=== PATIENT | male | born 1945 | race Caucasian/White ===

== ENCOUNTER 2024-06-27 16:00 | Inpatient (IN) | payer OTHER ==
[~2024-06-27] VITALS: Ht 177.8 cm; Wt 92.2 kg
[~2024-06-27 16:00] MED LIST: AMLO1TAB22 PO; ATOR-507 PO; FINA5TAB4 PO; HYDR50TA47 PO; LOSA-533 PO; METO-289 PO; TAMS0.4C39 PO
--- NOTE | 2024-06-27 16:54 | DVH ---
EXAM: XR Chest, 1 View CLINICAL INDICATION: pre op TECHNIQUE: Frontal view of the chest. COMPARISON: None FINDINGS: LUNGS AND PLEURAL SPACES: Unremarkable. No consolidation. No pneumothorax. HEART: Unremarkable. No cardiomegaly. MEDIASTINUM: Unremarkable. Normal mediastinal contour. BONES/JOINTS: Unremarkable. No acute fracture. IMPRESSION: No acute cardiopulmonary process.
[2024-06-27 17:27] LABS: Basophils # (auto) 0.1 10 ^3/uL (0-0.2); Basophils % (auto) 0.8 % (0.0-2.0); Eosinophils # (auto) 0.2 10 ^3/uL (0-0.8); Eosinophils % (auto) 2.4 % (0.0-7.0); Hematocrit 38.8 % (41.0-53.0); Hemoglobin 13.6 g/dL (13.5-17.5); Lymphocytes # (auto) 1.2 10 ^3/uL (0.4-5.4); Lymphocytes % (auto) 14.8 % (10.0-50.0); Mean Corpuscular Hemoglobin 29.5 pg (28.0-32.0); Mean Corpuscular Hgb Conc. 35.1 g/dL (32.0-36.0); Mean Corpuscular Volume 84.1 fL (80.0-100.0); Monocytes # (auto) 0.4 10 ^3/uL (0-1.3); Monocytes % (auto) 5.4 % (0.0-12.0); Neutrophils # (auto) 6.3 10 ^3/uL (1.6-8.6); Neutrophils % (auto) 76.6 % (37.0-80.0); Nucleated Red Blood Cells % 0.1 %; Platelet Count (auto) 145 10^3/uL (140-450); Red Blood Cells 4.61 10^6/uL (4.5-5.90); Red Cell Distribution Width 14.2 % (11.8-14.3); White Blood Cell 8.2 10^3/uL (4.4-10.8)
[2024-06-27 17:58] LABS: Alanine Aminotransferase 25 U/L (7-40); Albumin 4.4 g/dL (3.2-4.8); Alkaline Phosphatase 100 U/L (46-116); Anion Gap 7 (5-15); Aspartate Aminotransferase 20 U/L (13-40); BUN/Creatinine Ratio 12.5 (10.0-20.0); Bilirubin, Total 0.5 mg/dL (0.2-1.0); Blood Urea Nitrogen 23 mg/dL (9-23); Calcium 9.8 mg/dL (8.7-10.4); Carbon Dioxide 24 mmol/L (20-31); Chloride 109 mmol/L (98-107); Glucose 172 mg/dL (74-106); Sodium 140 mmol/L (136-145)
[2024-06-27 18:21] LABS: COVID19 ANTIGEN SOFIA FIA NEGATIVE (NEGATIVE)
--- NOTE | 2024-06-27 18:51 | ED.PDOC ---
General HPI Comments Patient here for admission for urinary procedure tomorrow. Patient was seen in by Dr. Valadez. Patient is scheduled to have TURP procedure done tomorrow. States he has been having blood in his urine over the last two weeks and getting worse over the last two days. He was seen by Dr. Neal today advised to come into the emergency department. Patient states he has been urinating fine without any obstruction. Patient states he was explained that he has a lesion in his bladder and and needs to be removed. Chief Complaint: Urinary Time Seen by MD: 16:12 Primary Care Provider: RENE Reviewed notes: Nurses Notes Allergies: Coded Allergies: NO KNOWN ALLERGIES (Unverified , 06/27/24) Information Source: Patient Mode of Arrival: Ambulatory Past Medical History Past Medical History (Other): Prostate cancer, BPH, Constitutional: denies: chills, diaphoresis, fatigue, fever, malaise, sweats, weakness, others EENTM: denies: blurred vision, double vision, ear bleeding, ear discharge, ear drainage, ear pain, ear ringing, eye pain, eye redness, hearing loss, mouth pain, mouth swelling, nasal discharge, nose bleeding, nose congestion, nose pain, photophobia, tearing, throat pain, throat swelling, voice changes, others Respiratory: denies: cough, hemoptysis, orthopnea, SOB at rest, shortness of breath, SOB with excertion, stridor, wheezing, others Cardiovascular: denies: chest pain, dizzy spells, diaphoresis, Dyspnea on exertion, edema, irregular heart beat, left arm pain, lightheadedness, palpitations, PND, syncope, others Gastrointestinal: denies: abdomen distended, abdominal pain, blood streaked bowels, constipated, diarrhea, dysphagia, difficulty swallowing, hematemesis, melena, nausea, poor appetite, poor fluid intake, rectal bleeding, rectal pain, vomiting, others Genitourinary: reports: hematuria; denies: burning, dysuria, flank pain, frequency, incontinence, penile discharge, penile sore, pain, testicle pain, testicle swelling, urgency, others Neurological: denies: dizziness, fainting, headache, left sided numbness, left sided weakness, numbness, paresthesia, pre-existing deficit, right sided numbness, right sided weakness, seizure, speech problems, tingling, tremors, weakness, others Musculoskeletal: denies: back pain, gout, joint pain, joint swelling, muscle pain, muscle stiffness, neck pain, others Integumetry: denies: bruises, change in color, change in hair/nails, dryness, laceration, lesions, lumps, rash, wounds, others Allergic/Immunocompromised: denies: Difficulty Healing, Frequent Infections, Hives, Itching, others Hematologic/Lymphatic: denies: anemia, blood clots, easy bleeding, easy bruising, swollen glands, others Physical Exam General Appearance: No Apparent Distress, Normal HEENT: Normal ENT Inspection, Pharynx Normal, TMs Normal Neck: Full Range of Motion, Non-Tender, Normal, Normal Inspection Respiratory: Chest Non-Tender, Lungs Clear, No Accessory Muscle Use, No Respiratory Distress, Normal Breath Sounds Cardiovascular: No Edema, No JVD, No Murmur, No Gallop, Normal Peripheral Pulses, Regular Rate/Rhythm Breast Exam: Deferred Gastrointestinal: No Organomegaly, Non Tender, No Pulsatile Mass, Normal Bowel Sounds, Soft Genitalia: Deferred Pelvic: Deferred Rectal: Deferred Extremities: No calf tenderness, Normal capillary refill, Normal inspection, Normal range of motion, Non-tender, No pedal edema Musculoskeletal : Apperance: Normal Neurologic: Alert, marketing area manager II-XII nml as Tested, No Motor Deficits, Normal Affect, Normal Mood, No Sensory Deficits Cerebellar Function: Normal Reflexes: Normal Skin: Dry, Normal Color, Warm Lymphatic: No Adenopathy Was a procedure done? Was a procedure done?: No Differential Diagnosis Kidney stone (Female): N/A Kidney stone (Male): Pyelonephritis, Urinary obstruction, Urinary tract infection Penile/Scrotal: Prostatitis X-Ray, Labs, Meds, VS Vital Signs Date Time Temp Pulse Resp B/P (MAP) Pulse Ox O2 Delivery O2 Flow Rate FiO2 06/27/24 18:23 98.3 87 18 161/90 (113) 93 98.3 06/27/24 16:16 97.6 91 17 129/81 (97) 95 Lab Test 06/27/24 17:20 06/27/24 17:13 Range/Units SARS-CoV-2 Antigen (Rapid) Negative NEGATIVE White Blood Count 8.2 4.4-10.8 10^3/uL Red Blood Count 4.61 4.5-5.90 10^6/uL Hemoglobin 13.6 13.5-17.5 g/dL Hematocrit 38.8 L 41.0-53.0 % Mean Corpuscular Volume 84.1 80.0-100.0 fL Mean Corpuscular Hemoglobin 29.5 28.0-32.0 pg Mean Corpuscular Hemoglobin Concent 35.1 32.0-36.0 g/dL Red Cell Distribution Width 14.2 11.8-14.3 % Platelet Count 145 140-450 10^3/uL Mean Platelet Volume 8.5 6.9-10.8 fL Neutrophils (%) (Auto) 76.6 37.0-80.0 % Lymphocytes (%) (Auto) 14.8 10.0-50.0 % Monocytes (%) (Auto) 5.4 0.0-12.0 % Eosinophils (%) (Auto) 2.4 0.0-7.0 % Basophils (%) (Auto) 0.8 0.0-2.0 % Neutrophils # (Auto) 6.3 1.6-8.6 10 ^3/uL Lymphocytes # (Auto) 1.2 0.4-5.4 10 ^3/uL Monocytes # (Auto) 0.4 0-1.3 10 ^3/uL Eosinophils # (Auto) 0.2 0-0.8 10 ^3/uL Basophils # (Auto) 0.1 0-0.2 10 ^3/uL Nucleated Red Blood Cells 0.1 % Sodium Level 140 136-145 mmol/L Potassium Level 4.0 3.5-5.1 mmol/L Chloride Level 109 H 98-107 mmol/L Carbon Dioxide Level 24 20-31 mmol/L Anion Gap 7 5-15 Blood Urea Nitrogen 23 9-23 mg/dL Creatinine 1.84 H 0.700-1.30 mg/dL Glomerular Filtration Rate Calc 37 >90 mL/min BUN/Creatinine Ratio 12.5 10.0-20.0 Serum Glucose 172 H 74-106 mg/dL Calcium Level 9.8 8.7-10.4 mg/dL Total Bilirubin 0.5 0.2-1.0 mg/dL Aspartate Amino Transferase (AST) 20 13-40 U/L Alanine Aminotransferase (ALT) 25 7-40 U/L Alkaline Phosphatase 100 46-116 U/L Total Protein 7.0 5.7-8.2 g/dL Albumin 4.4 3.2-4.8 g/dL X-Ray, Labs, Meds, VS Comment Preop labs ordered, patient will be admitted for procedure in the morning Time of 1ST Reevaluation: 18:51 Reevaluation 1ST: Unchanged Patient Education/Counseling: Diagnosis, Treatment Family Education/Counseling: Diagnosis Departure 1 Departure Time of Disposition: 18:50 Impression: Primary Impression: BPH (benign prostatic hyperplasia) Qualified Codes: N40.0 - Benign prostatic hyperplasia without lower urinary tract symptoms Additional Impressions: Hematuria Qualified Codes: R31.0 - Gross hematuria Lesion of bladder Disposition: ADMITTED INPATIENT Condition: Fair Discharged With: Self Critical Care Note Critical Care Time?: No Stability Stability form required: No Heart Score Heart Score: Heart Score Response (Comments) Value History N/A 0 EKG N/A 0 Age N/A 0 Risk Factors N/A 0 Troponin N/A 0 Total 0 AMY SÁNCHEZP Jun 27, 2024 18:51
--- NOTE | 2024-06-27 21:18 | DVHINCON2 ---
Date of service: Jun 27, 2024 Reason for Consultation Gross hematuria History of Present Illness Patient recently diagnosis with prostate cancer, high grade sarcoma pathology, was see in the office today with gross hematuria. Past Medical History Poorly functional left renal unit HTN CKD Sarcoma of prostate Past Surgical History TURP Prostate biopsy Left ureteral stent/removal Allergies: Coded Allergies: NO KNOWN ALLERGIES (Unverified , 06/27/24) Review of Systems Gross hematuria Vital Signs Vital Signs Date Time Temp Pulse Resp B/P (MAP) Pulse Ox O2 Delivery O2 Flow Rate FiO2 06/27/24 18:23 98.3 87 18 161/90 (113) 93 98.3 Physical Exam NAD : normal Labs/Diagnostic Data Labs Test 06/27/24 17:20 06/27/24 17:13 Range/Units SARS-CoV-2 Antigen (Rapid) Negative NEGATIVE White Blood Count 8.2 4.4-10.8 10^3/uL Red Blood Count 4.61 4.5-5.90 10^6/uL Hemoglobin 13.6 13.5-17.5 g/dL Hematocrit 38.8 L 41.0-53.0 % Mean Corpuscular Volume 84.1 80.0-100.0 fL Mean Corpuscular Hemoglobin 29.5 28.0-32.0 pg Mean Corpuscular Hemoglobin Concent 35.1 32.0-36.0 g/dL Red Cell Distribution Width 14.2 11.8-14.3 % Platelet Count 145 140-450 10^3/uL Mean Platelet Volume 8.5 6.9-10.8 fL Neutrophils (%) (Auto) 76.6 37.0-80.0 % Lymphocytes (%) (Auto) 14.8 10.0-50.0 % Monocytes (%) (Auto) 5.4 0.0-12.0 % Eosinophils (%) (Auto) 2.4 0.0-7.0 % Basophils (%) (Auto) 0.8 0.0-2.0 % Neutrophils # (Auto) 6.3 1.6-8.6 10 ^3/uL Lymphocytes # (Auto) 1.2 0.4-5.4 10 ^3/uL Monocytes # (Auto) 0.4 0-1.3 10 ^3/uL Eosinophils # (Auto) 0.2 0-0.8 10 ^3/uL Basophils # (Auto) 0.1 0-0.2 10 ^3/uL Nucleated Red Blood Cells 0.1 % Sodium Level 140 136-145 mmol/L Potassium Level 4.0 3.5-5.1 mmol/L Chloride Level 109 H 98-107 mmol/L Carbon Dioxide Level 24 20-31 mmol/L Anion Gap 7 5-15 Blood Urea Nitrogen 23 9-23 mg/dL Creatinine 1.84 H 0.700-1.30 mg/dL Glomerular Filtration Rate Calc 37 >90 mL/min BUN/Creatinine Ratio 12.5 10.0-20.0 Serum Glucose 172 H 74-106 mg/dL Calcium Level 9.8 8.7-10.4 mg/dL Total Bilirubin 0.5 0.2-1.0 mg/dL Aspartate Amino Transferase (AST) 20 13-40 U/L Alanine Aminotransferase (ALT) 25 7-40 U/L Alkaline Phosphatase 100 46-116 U/L Total Protein 7.0 5.7-8.2 g/dL Albumin 4.4 3.2-4.8 g/dL Assessment Gross hematuria Sarcoma of prostate Left hydronephrosis CKD Plan/Recommendation Admit to DV CT Scan AP NC Cystoscopy with clot evacuation/fulguration/TURP medical oncology consultation regarding sarcoma of prostate Plan discussed with: Patient, Other JAYDA DAVIS MD Jun 27, 2024 21:18
[2024-06-27] MEDS ORDERED: ONDANSETRON HCL 4 MG/2 ML VIAL IV PRN (21:45)
[2024-06-27] MEDS ORDERED: ACETAMINOPHEN 325 MG TAB PO PRN (21:45)
[2024-06-27] MEDS ORDERED: TEMAZEPAM 15 MG CAP PO PRN (21:45)
--- NOTE | 2024-06-27 22:05 | DVH ---
Exam: CT CT AB PEL WO CON-NO ORAL OR IV History: Left hydronephrosis Comparison Study: None available at time of dictation. Technique: Multidetector spiral CT of the abdomen was performed from lung bases to pubic symphysis. Imaging was performed without IV contrast. Axial, coronal and sagittal multiplanar reformats were ob tained from the axial data set by the technologist. Radiation Dose : 1. Abdomen/Pelvis: CTDIvol 15 mGy, DLP 845 mGy*cm. Findings: Evaluation of solid organs is limited due to lack of intravenous contrast use. Lung Bases: No acute or significant lung base finding. Normal heart size. No pleural or pericardial effusion. Liver: The liver is normal in size. No focal lesions. Gallbladder and Biliary Tree: Unremarkable Spleen: Unremarkable Pancreas: The pancreas is grossly normal in appearance. Adrenal Glands: Unremarkable Kidneys: Mildly atrophic left kidney demonstrating mild hydronephrosis. The mid left ureter demonstr ates significant adjacent fat stranding adjacent to the psoas muscle. No evidence of ureteral stones. Bladder: Grossly unremarkable for degree of distention. Bowel: The stomach is grossly normal in appearance. Small bowel and colon are normal in caliber and d istribution. The appendix is not visualized; however, no secondary findings of acute appendicitis id entified. Colonic diverticulosis. Ascites: Absent Lymphadenopathy: Multiple prominent left-sided periaortic lymph nodes measuring up to 2 cm. Abdominal Wall and Mesentery: Unremarkable. Vasculature: The visualized abdominal aorta is normal in size and caliber. Evaluation of abdominal a nd pelvic vessels is limited due to lack of intravenous contrast. Pelvic Organs: Severely enlarged prostate. Musculoskeletal: No aggressive focal bony lesions, acute fractures or dislocation. IMPRESSION: Slightly atrophic left kidney with mild left-sided hydronephrosis. The left mid ureter demonstrates a djacent fat stranding at the level of the psoas which raises concern for possible infectious process. No evidence of ureteral stones. There is left periaortic lymphadenopathy which is most likely reacti ve to this process. Severely enlarged prostate. Correlation with PSA recommended.
[2024-06-27 22:42] LABS: Partial Thromboplastin Time 26.1 SEC (24.5-34.5); Prothrombin Time 10.6 sec (9.3-11.8)
[2024-06-27 22:45] VITALS: PULSE 84; RESP 13; O2SAT 94
[2024-06-27] MEDS: ATORVASTATIN 20 MG TAB PO SCH (22:55)
[2024-06-27] MEDS: cefTRIAXone 1GM/50ML D5W 50 ML IV SCH (22:55)
[2024-06-27 23:03] LABS: Urine Bacteria None Seen /hpf (None Seen)
--- NOTE | 2024-06-27 23:07 | DVHHP2 ---
History of Present Illness Reason for Visit: Hematuria History of Present Illness 79-year-old male presents with complaints of hematuria have been ongoing for the past two weeks. Patient has a history of prostate cancer and was advised by his urologist to present for a possible TURP tomorrow morning. Denies dizziness or shortness for breath. No cardiac complaints. Past Medical History Hypertension, chronic kidney disease, prostate CA Past Surgical History Denies Family History Noncontributory Smoke: No ALCOHOL: none Drugs: None Lives: with Family Review of Systems Review of Systems Review of systems are currently negative otherwise addressed in HPI. Allergies: Coded Allergies: NO KNOWN ALLERGIES (Unverified , 06/27/24) Medications Current Medications Medications Dose Ordered Sig/Sarbjit Route Start Time Stop Time Status Last Admin Dose Admin Hydralazine HCl 10 mg Q6HP PRN IV 06/27/24 21:45 Tamsulosin HCl 0.4 mg QPM PO 06/28/24 18:00 Metoprolol Succinate 50 mg DAILY PO 06/28/24 10:00 Amlodipine Besylate 5 mg DAILY PO 06/28/24 10:00 Atorvastatin Calcium 40 mg HS PO 06/27/24 22:00 06/27/24 22:55 40 MG Ceftriaxone Sodium 50 ml @ 100 mls/hr DAILY@09 IV 06/27/24 21:43 06/27/24 22:55 100 MLS/HR Acetaminophen/ Hydrocodone Bitart 1 tab Q4HP PRN PO 06/27/24 21:45 Temazepam 15 mg QHSP PRN PO 06/27/24 21:45 Ondansetron HCl 4 mg Q4HP PRN IV 06/27/24 21:45 Acetaminophen 650 mg Q6HP PRN PO 06/27/24 21:45 Exam Vital Signs Vital Signs Date Time Temp Pulse Resp B/P (MAP) Pulse Ox O2 Delivery O2 Flow Rate FiO2 06/27/24 22:45 84 13 94 Room Air* 0 21 06/27/24 22:45 97.9 167/97 (120) 97.9 Exam Gen: A 1-year-old male in mild distress Skin: Warm, dry, normal color and texture, no rash. HEENT: Normocephalic atraumatic, mucous membranes moist and pink. Neck: Cervical and supraclavicular nodes normal without enlargement, trachea is midline, thyroid gland is normal without masses. Pulmonary: Clear to auscultation and percussion bilaterally. Cardiac: Regular rate and rhythm. No murmur Abdomen: Soft, nontender, nondistended, bowel sounds present all 4 quadrants, no guarding, no rigidity, no organomegaly. Extremities: No cyanosis, clubbing, no edema Neuro: Cranial nerves II through XII grossly intact, normal affect and speech, no focal motor deficits. Labs/Xrays ORDERING PHYSICIAN: AMY SÁNCHEZ PROCEDURE(s): CXR1 - CHEST XRAY 1 VIEW REASON: pre op ORDER NUMBER(s): [id number], ACCESSION NUMBER(s): [id number] EXAM: XR Chest, 1 View CLINICAL INDICATION: pre op TECHNIQUE: Frontal view of the chest. COMPARISON: None FINDINGS: LUNGS AND PLEURAL SPACES: Unremarkable. No consolidation. No pneumothorax. HEART: Unremarkable. No cardiomegaly. MEDIASTINUM: Unremarkable. Normal mediastinal contour. BONES/JOINTS: Unremarkable. No acute fracture. IMPRESSION: No acute cardiopulmonary process. RING PHYSICIAN: JAYDA VALADEZ MD PROCEDURE(s): ABPL - CT AB PEL WO CON-NO ORAL OR IV REASON: Left hydronephrosis ORDER NUMBER(s): [id number], ACCESSION NUMBER(s): [id number] Exam: CT CT AB PEL WO CON-NO ORAL OR IV History: Left hydronephrosis Comparison Study: None available at time of dictation. Technique: Multidetector spiral CT of the abdomen was performed from lung bases to pubic symphysis. Imaging was performed without IV contrast. Axial, coronal and sagittal multiplanar reformats were obtained from the axial data set by the technologist. Radiation Dose : 1. Abdomen/Pelvis: CTDIvol 15 mGy, DLP 845 mGy*cm. Findings: Evaluation of solid organs is limited due to lack of intravenous contrast use. Lung Bases: No acute or significant lung base finding. Normal heart size. No pleural or pericardial effusion. Liver: The liver is normal in size. No focal lesions. Gallbladder and Biliary Tree: Unremarkable Spleen: Unremarkable Pancreas: The pancreas is grossly normal in appearance. Adrenal Glands: Unremarkable Kidneys: Mildly atrophic left kidney demonstrating mild hydronephrosis. The mid left ureter demonstrates significant adjacent fat stranding adjacent to the psoas muscle. No evidence of ureteral stones. Bladder: Grossly unremarkable for degree of distention. Bowel: The stomach is grossly normal in appearance. Small bowel and colon are normal in caliber and distribution. The appendix is not visualized; however, no secondary findings of acute appendicitis identified. Colonic diverticulosis. Ascites: Absent Lymphadenopathy: Multiple prominent left-sided periaortic lymph nodes measuring up to 2 cm. Abdominal Wall and Mesentery: Unremarkable. Vasculature: The visualized abdominal aorta is normal in size and caliber. Evaluation of abdominal and pelvic vessels is limited due to lack of intravenous contrast. Pelvic Organs: Severely enlarged prostate. Musculoskeletal: No aggressive focal bony lesions, acute fractures or dislocation. IMPRESSION: Slightly atrophic left kidney with mild left-sided hydronephrosis. The left mid ureter demonstrates adjacent fat stranding at the level of the psoas which raises concern for possible infectious process. No evidence of ureteral stones. There is left periaortic lymphadenopathy which is most likely reactive to this process. Severely enlarged prostate. Correlation with PSA recommended. ATED BY: GILLIAN HORN DO Labs Test 06/27/24 22:11 06/27/24 17:20 06/27/24 17:13 Range/Units Prothrombin Time 10.6 9.3-11.8 sec Prothrombin Time INR 1.00 0.9-1.15 Activated Partial Thromboplast Time 26.1 24.5-34.5 SEC SARS-CoV-2 Antigen (Rapid) Negative NEGATIVE White Blood Count 8.2 4.4-10.8 10^3/uL Red Blood Count 4.61 4.5-5.90 10^6/uL Hemoglobin 13.6 13.5-17.5 g/dL Hematocrit 38.8 L 41.0-53.0 % Mean Corpuscular Volume 84.1 80.0-100.0 fL Mean Corpuscular Hemoglobin 29.5 28.0-32.0 pg Mean Corpuscular Hemoglobin Concent 35.1 32.0-36.0 g/dL Red Cell Distribution Width 14.2 11.8-14.3 % Platelet Count 145 140-450 10^3/uL Mean Platelet Volume 8.5 6.9-10.8 fL Neutrophils (%) (Auto) 76.6 37.0-80.0 % Lymphocytes (%) (Auto) 14.8 10.0-50.0 % Monocytes (%) (Auto) 5.4 0.0-12.0 % Eosinophils (%) (Auto) 2.4 0.0-7.0 % Basophils (%) (Auto) 0.8 0.0-2.0 % Neutrophils # (Auto) 6.3 1.6-8.6 10 ^3/uL Lymphocytes # (Auto) 1.2 0.4-5.4 10 ^3/uL Monocytes # (Auto) 0.4 0-1.3 10 ^3/uL Eosinophils # (Auto) 0.2 0-0.8 10 ^3/uL Basophils # (Auto) 0.1 0-0.2 10 ^3/uL Nucleated Red Blood Cells 0.1 % Sodium Level 140 136-145 mmol/L Potassium Level 4.0 3.5-5.1 mmol/L Chloride Level 109 H 98-107 mmol/L Carbon Dioxide Level 24 20-31 mmol/L Anion Gap 7 5-15 Blood Urea Nitrogen 23 9-23 mg/dL Creatinine 1.84 H 0.700-1.30 mg/dL Glomerular Filtration Rate Calc 37 >90 mL/min BUN/Creatinine Ratio 12.5 10.0-20.0 Serum Glucose 172 H 74-106 mg/dL Calcium Level 9.8 8.7-10.4 mg/dL Total Bilirubin 0.5 0.2-1.0 mg/dL Aspartate Amino Transferase (AST) 20 13-40 U/L Alanine Aminotransferase (ALT) 25 7-40 U/L Alkaline Phosphatase 100 46-116 U/L Total Protein 7.0 5.7-8.2 g/dL Albumin 4.4 3.2-4.8 g/dL Assessment/Plan Assessment/Plan Assessment Gross hematuria Sarcoma of the prostate Chronic kidney disease Hypertension Plan Admit the patient to [facility] to the hospitalist Urology consultation, Dr. Valadez has placed orders NPO after midnight Pain management Continue treatment per orders. Plan discussed with: Patient My Orders Orders - BRANDIN JIMENES Procedure Category Date Status Time * Hematology/Oncology CONS 06/27/24 Transmitted Consult 21:31 Hydralazine Injection PHA 06/27/24 In Process (Apresoline Inject 21:45 Tamsulosin PHA 06/28/24 In Process Hydrochloride (Flomax) 18:00 Metoprolol Xl PHA 06/28/24 In Process Succinate (Toprol Xl) 10:00 Amlodipine Tablet PHA 06/28/24 In Process (Norvasc Tablet) 10:00 Atorvastatin (Lipitor) PHA 06/27/24 In Process 22:00 Basic Metabolic Panel LAB 06/28/24 Verified 04:00 Admit ADMIT 06/27/24 Transmitted 21:31 Hydrocodone-Acet PHA 06/27/24 In Process 5/325mg Tab ([place] 21:45 Temazepam (Restoril) PHA 06/27/24 In Process 21:45 Ondansetron Hcl PHA 06/27/24 In Process (Zofran) 21:45 Complete Blood Count LAB 06/28/24 Verified 04:00 Condition: Stable [place]IRON 06/27/24 In Process 21:31 Acetaminophen Tablet PHA 06/27/24 In Process (Tylenol Tablet) 21:45 Bedrest With Bathroom BAIRON 06/27/24 In Process Privileg 21:31 Sequential BAIRON 06/27/24 In Process Compression Device Ceftriaxone 1gm/50ml PHA 06/27/24 In Process D5w (Rocephin) 21:43 Date of Service: Jun 27, 2024 Billing Provider: BRANDIN JIMENES Common Visit Codes: 63793-[id number] INP/OBS CARE (HIGH) BRANDIN JIMENES Jun 27, 2024 23:07
[2024-06-27] MEDS: hydrALAZINE HCL 20 MG/ML VL IV PRN (23:20)
[2024-06-27 23:27] LABS: Urine Blood 3+ /uL (Negative); Urine Clarity Ex.Turbid (Clear); Urine Color Light-Red (Yellow); Urine Protein, UAD 2+ (Negative); Urine Specific Gravity 1.022 (1.001-1.035); Urine Urobilinogen Normal (Negative); Urine WBC 47 /hpf (0 - 3)
[2024-06-28] VITALS (8 sets, daily range): BP systolic 124–157; BP diastolic 71–90; PULSE 72–88; RESP 16–20; TEMP 97.3–98.3; O2SAT 92–98
[2024-06-28 06:33] LABS: Anion Gap 8 (5-15); Carbon Dioxide 23 mmol/L (20-31); Chloride 111 mmol/L (98-107); Potassium 3.8 mmol/L (3.5-5.1); Sodium 142 mmol/L (136-145)
[2024-06-28 06:34] LABS: Calcium 9.6 mg/dL (8.7-10.4)
[2024-06-28 06:39] LABS: BUN/Creatinine Ratio 13.2 (10.0-20.0); Blood Urea Nitrogen 22 mg/dL (9-23); Glucose 135 mg/dL (74-106)
[2024-06-28] MEDS: METOPROLOL SUCCINATE XL 50 MG TAB PO SCH (09:23)
[2024-06-28] MEDS: amLODIPine BESYLATE 5 MG TAB PO SCH (09:23)
--- NOTE | 2024-06-28 09:43 | DVHPN2 ---
Subjective 79 year old male with prostate CA s/p Sx 2 weeks ago, came with hematuria Box was attempted, not successful Was seen by Dr. Valadez yesterday, sent here for possible intervention Patient was recently diagnosed with prostate cancer, high grade sarcoma pathology Changes from previous H/P or p: Changes Objective Vitals Vital Signs Date Time Temp Pulse Resp B/P (MAP) Pulse Ox O2 Delivery O2 Flow Rate FiO2 06/28/24 09:23 147/80 06/28/24 09:23 79 06/28/24 08:30 97.7 18 98 97.7 06/28/24 00:20 Room Air* 0 21 Intake/Output Intake and Output 06/28/24 07:00 Intake Total 0 ml Balance 0 ml Intake Oral 0 ml General Appearance: Alert, Oriented X3, Cooperative, No acute distress Lungs: Clear to auscultation, Normal air movement Cardiovascular: Regular rate, Normal S1, Normal S2, No murmurs Abdomen: Normal bowel sounds, Soft, No tenderness Medications Current Medications Medications Dose Ordered Sig/Sarbjit Route Start Time Stop Time Status Last Admin Dose Admin Hydralazine HCl 10 mg Q6HP PRN IV 06/27/24 21:45 06/27/24 23:20 10 MG Tamsulosin HCl 0.4 mg QPM PO 06/28/24 18:00 Metoprolol Succinate 50 mg DAILY PO 06/28/24 10:00 06/28/24 09:23 50 MG Amlodipine Besylate 5 mg DAILY PO 06/28/24 10:00 06/28/24 09:23 5 MG Atorvastatin Calcium 40 mg HS PO 06/27/24 22:00 06/27/24 22:55 40 MG Ceftriaxone Sodium 50 ml @ 100 mls/hr DAILY@09 IV 06/27/24 21:43 06/28/24 09:22 100 MLS/HR Acetaminophen/ Hydrocodone Bitart 1 tab Q4HP PRN PO 06/27/24 21:45 Temazepam 15 mg QHSP PRN PO 06/27/24 21:45 Ondansetron HCl 4 mg Q4HP PRN IV 06/27/24 21:45 Acetaminophen 650 mg Q6HP PRN PO 06/27/24 21:45 Laboratory Results Laboratory Tests 06/28/24 05:24 Chemistry Test 06/27/24 17:13 06/28/24 05:24 Albumin 4.4 g/dL (3.2-4.8) Calcium Level 9.8 mg/dL (8.7-10.4) 9.6 mg/dL (8.7-10.4) Total Protein 7.0 g/dL (5.7-8.2) Coagulation Test 06/27/24 22:11 Prothrombin Time 10.6 sec (9.3-11.8) Prothrombin Time INR 1.00 (0.9-1.15) Activated Partial Thromboplast Time 26.1 SEC (24.5-34.5) LFT Test 06/27/24 17:13 Alanine Aminotransferase (ALT) 25 U/L (7-40) Alkaline Phosphatase 100 U/L (46-116) Aspartate Amino Transferase (AST) 20 U/L (13-40) Total Bilirubin 0.5 mg/dL (0.2-1.0) Urinalysis Test 06/27/24 22:10 Urine Color Light-red (Yellow) Urine Clarity Ex.turbid (Clear) Urine pH 6.0 (5.0-9.0) Urine Specific [place] 1.022 (1.001-1.035) Urine Protein 2+ (Negative) H Urine Ketones Negative (Negative) Urine Blood 3+ /uL (Negative) H Urine Nitrite Negative (Negative) Urine Bilirubin Negative (Negative) Urine Urobilinogen Normal mg/dL (Negative) Urine Leukocyte Esterase 1+ /uL (Negative) Urine RBC 7623 /hpf (0 - 3) Urine WBC 47 /hpf (0 - 3) Urine Squamous Epithelial Cells None seen /hpf (<5) Urine Bacteria None seen /hpf (None Seen) Urine Glucose Trace mg/dL (Normal) Assessment/Plan Assessment/Plan Hematuria Urinary retention BPH s/p recent TURP CKD IIIb HTN Prostate CA PLAN: CBI ordered by Urology IV antibiotics Urology is following Discussed with patient and at the bedside Plan discussed with: Patient, Spouse Date of Service: Jun 28, 2024 Billing Provider: LAURA HERNANDEZ MD Common Visit Codes: NOT BILLABLE LAURA HERNANDEZ MD Jun 28, 2024 09:43
[2024-06-28 10:28] LABS: Basophils # (auto) 0.1 10 ^3/uL (0-0.2); Basophils % (auto) 0.9 % (0.0-2.0); Eosinophils # (auto) 0.2 10 ^3/uL (0-0.8); Eosinophils % (auto) 2.3 % (0.0-7.0); Hematocrit 36.3 % (41.0-53.0); Hemoglobin 12.1 g/dL (13.5-17.5); Lymphocytes % (auto) 14.8 % (10.0-50.0); Mean Corpuscular Hemoglobin 28.5 pg (28.0-32.0); Mean Corpuscular Hgb Conc. 33.4 g/dL (32.0-36.0); Mean Corpuscular Volume 85.2 fL (80.0-100.0); Monocytes # (auto) 0.4 10 ^3/uL (0-1.3); Monocytes % (auto) 6.3 % (0.0-12.0); Neutrophils # (auto) 5.4 10 ^3/uL (1.6-8.6); Neutrophils % (auto) 75.7 % (37.0-80.0); Nucleated Red Blood Cells % 0.2 %; Red Blood Cells 4.26 10^6/uL (4.5-5.90); Red Cell Distribution Width 14.3 % (11.8-14.3); White Blood Cell 7.1 10^3/uL (4.4-10.8)
[2024-06-28 10:30] LABS: Platelet Count (auto) 129 10^3/uL (140-450)
[2024-06-28] MEDS ORDERED: ceFAZolin 2 GM/D5W100ml 100 ML IV ONE (11:47)
[2024-06-28] MEDS ORDERED: MORPHINE SULFATE 4 MG/ML SYR/VIAL IV PRN (12:30)
[2024-06-28] MEDS ORDERED: hydrALAZINE HCL 20 MG/ML VL IV PRN (12:30)
[2024-06-28] MEDS ORDERED: ePHEDrine SULFATE 50 MG/ML AMP IV PRN (12:30)
[2024-06-28] MEDS ORDERED: MIDAZOLAM HCL 2MG/2ML 2ml VIAL (1mg/ml) IV PRN (12:30)
[2024-06-28] MEDS ORDERED: ONDANSETRON HCL 4 MG/2 ML VIAL IV ONE (12:30)
[2024-06-28] MEDS ORDERED: HYDROmorphone HCL 2 MG/ML VL/or syr IV PRN (12:30)
[2024-06-28] MEDS ORDERED: fentaNYL CITRATE 100 MCG/2 ML VL ONE (12:52)
[2024-06-28] MEDS ORDERED: MIDAZOLAM HCL 2MG/2ML 2ml VIAL (1mg/ml) ONE (12:52)
[2024-06-28] MEDS ORDERED: MEPERIDINE HCL (50 MG/ML) 1 ML VIAL ONE (12:52)
--- NOTE | 2024-06-28 13:00 | DVHOP2 ---
Operative Report - 2 Report Details Date: 06/28/24 Preop Diagnosis: Gross hematuria Sarcoma of the prostate Postop Diagnosis: Same as above False urethral passage while attempting to place a Box catheter Surgeon: Jayda Valadez Anesthesiologist: Laney Anesthesia: General Consent: The patient was informed of the risks and benefits of the procedure. These include but are not limited to complications of anesthesia, postoperative infection, incomplete relief of symptoms, recurrence of symptoms, damage to blood vessels, nerves and tendons, deep venous thrombosis, pulmonary embolism and possible need for repeat surgery in the future. 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 He was placed in dorsal lithotomy position with the area of the genitalia prepped and draped in usual sterile manner. Twenty-six Beninese resectoscope sheath with the visual obturator was used to access the urethra in the bladder. There was a mid urethral false passage that was created when catheter placement was attempted by hospital staff. This was bypassed and bladder neck area was accessed. Multiple blood clots were identified and removed. Hemostasis is obtained with button electrode with bipolar mode. Normal saline was used for irrigation. Once the hemostasis was verified by fulgurating the prostatic bed/fossa, the resectoscope was removed in entirety. A [address] Box catheter was inserted for continuous bladder irrigation. Patient was awakened and taken to recovery room in stable condition Specimen: Blood clots and few tissue specimens from the prostate fossa Condition Good Disposition JAYDA VALADEZ MD Jun 28, 2024 13:00
--- NOTE | 2024-06-28 13:25 | DVHINCON2 ---
Date of service: Jun 28, [address] Augustin Valadez Reason for Consultation Sarcoma of the prostate History of Present Illness 79 years old gentleman whose is by his bedside. Has a history of diabetes, hypertension and CKD. He presented with bleeding in the urine. The patient states that he had a TURP done couple of weeks back and has not stopped bleeding since then. And this for the patient came into the hospital again. And Dr. Valadez's note states that he has sarcoma From the prostate For the gross hematuria the patient had cystoscope with clot evacuation and fulguration this morning. A 20 Thai three-way Box catheter was inserted for continuous bladder irrigation Patient had a CT scan of the abdomen and pelvis without contrast on 06/27/2024 which showed slightly atrophic left kidney with mild left-sided hydronephrosis. The left mid ureter demonstrates adjacent fat stranding at the level of the psoas muscle which raises concern for possible infectious process. No evidence of ureteral stones. There is left periaortic lymphadenopathy which is most likely reactive to this process Severely enlarged prostate Chest x-ray was unremarkable CBC showed a white count of 7.1 hemoglobin 12.1 platelets 129 BUN 22 creatinine 1.67 AST 20 ALT 25 alkaline phosphatase 100 total protein 7 albumin 4.4. The PSA report is pending The patient states that he has lost 10 pounds of weight Past Medical History Diabetes Hypertension Chronic kidney disease Family History: Malignant neoplasm of breast G8 MOTHER Family History Unremarkable for malignancy or hematological disorders Social History Quit smoking 25 years back and has not been drinking any alcohol for the last 5 months and used to be a social drinker before Allergies: Coded Allergies: NO KNOWN ALLERGIES (Unverified , 06/27/24) Current Medications Current Medications Medications (Trade) Dose Ordered Sig/Sarbjit Route PRN Reason Start Time Stop Time Status Last Admin Hydralazine HCl (Apresoline Injection) 10 mg Q6HP PRN IV SBP>150 06/27/24 21:45 06/27/24 23:20 Tamsulosin HCl (Flomax) 0.4 mg QPM PO 06/28/24 18:00 Metoprolol Succinate (Toprol Xl) 50 mg DAILY PO 06/28/24 10:00 06/28/24 09:23 Amlodipine Besylate (Norvasc Tablet) 5 mg DAILY PO 06/28/24 10:00 06/28/24 09:23 Atorvastatin Calcium (Lipitor) 40 mg HS PO 06/27/24 22:00 06/27/24 22:55 Ceftriaxone Sodium 50 ml @ 100 mls/hr DAILY@09 IV 06/27/24 21:43 06/28/24 09:22 Acetaminophen/ Hydrocodone Bitart ([place] 5/325MG Tab) 1 tab Q4HP PRN PO MODERATE PAIN (4-6 PAIN SCALE) 06/27/24 21:45 Temazepam (Restoril) 15 mg QHSP PRN PO FOR INSOMNIA 06/27/24 21:45 Ondansetron HCl (Zofran) 4 mg Q4HP PRN IV NAUSEA / VOMITING 06/27/24 21:45 Acetaminophen (Tylenol Tablet) 650 mg Q6HP PRN PO PAIN SCALE 1-3 OR TEMP>100.4 06/27/24 21:45 Hydralazine HCl (Apresoline Injection) 5 mg Q10M PRN IV SBP>160 06/28/24 12:30 06/28/24 13:21 Morphine Sulfate 2 mg Q2HPRN PRN IV BREAKTHROUGH PAIN (7-10) 06/28/24 12:30 06/28/24 12:41 DC Midazolam HCl (Versed Injection) 1 mg Q10M PRN IV ANXIETY 06/28/24 12:30 06/28/24 13:11 DC Ephedrine Sulfate (ePHEDrine SULFATE) 10 mg Q10M PRN IV SBP LESS THAN 90 06/28/24 12:30 06/28/24 13:11 DC Hydromorphone HCl (Dilaudid Injection) 0.5 mg Q10M PRN IV SEVERE PAIN (7-10 PAIN SCALE) 06/28/24 12:30 06/28/24 13:11 DC Vital Signs Vital Signs Date Time Temp Pulse Resp B/P (MAP) Pulse Ox O2 Delivery O2 Flow Rate FiO2 06/28/24 09:23 147/80 06/28/24 09:23 79 06/28/24 08:30 97.7 18 98 97.7 06/28/24 00:20 Room Air* 0 21 Physical Exam GENERAL: The patient is a moderately built and nourished ,in no distress, alert and oriented. HEAD AND NECK: Unremarkable. No neck nodes or masses. Conjunctivae: Unremarkable for any mucosal hemorrhage or inflammation. Thyroid is nonpalpable. Throat is unremarkable. SPINE: No deformities or tenderness. CHEST: Chest wall, no tenderness. LUNGS: Clear. CARDIOVASCULAR: Regular sinus rhythm. No murmurs or gallops. ABDOMEN: No organomegaly, tenderness or ascites. Bowel sounds present. Has a three-way Box catheter EXTREMITIES: No clubbing, edema or cyanosis. Peripheral pulses palpable. No calf tenderness. LYMPHATICS: No significant lymphadenopathy. NEUROLOGIC: No focal neurological deficits. SKIN: Unremarkable for any petechiae, purpura, or ecchymosis. Psych: No abnormalities Available data reviewed Labs/Diagnostic Data Labs Test 06/28/24 09:47 06/28/24 05:24 06/28/24 02:21 06/27/24 22:11 Range/Units White Blood Count 7.1 4.4-10.8 10^3/uL Red Blood Count 4.26 L 4.5-5.90 10^6/uL Hemoglobin 12.1 L 13.5-17.5 g/dL Hematocrit 36.3 L 41.0-53.0 % Mean Corpuscular Volume 85.2 80.0-100.0 fL Mean Corpuscular Hemoglobin 28.5 28.0-32.0 pg Mean Corpuscular Hemoglobin Concent 33.4 32.0-36.0 g/dL Red Cell Distribution Width 14.3 11.8-14.3 % Platelet Count 129 L 140-450 10^3/uL Mean Platelet Volume 8.6 6.9-10.8 fL Neutrophils (%) (Auto) 75.7 37.0-80.0 % Lymphocytes (%) (Auto) 14.8 10.0-50.0 % Monocytes (%) (Auto) 6.3 0.0-12.0 % Eosinophils (%) (Auto) 2.3 0.0-7.0 % Basophils (%) (Auto) 0.9 0.0-2.0 % Neutrophils # (Auto) 5.4 1.6-8.6 10 ^3/uL Lymphocytes # (Auto) 1.0 0.4-5.4 10 ^3/uL Monocytes # (Auto) 0.4 0-1.3 10 ^3/uL Eosinophils # (Auto) 0.2 0-0.8 10 ^3/uL Basophils # (Auto) 0.1 0-0.2 10 ^3/uL Nucleated Red Blood Cells 0.2 % Sodium Level 142 136-145 mmol/L Potassium Level 3.8 3.5-5.1 mmol/L Chloride Level 111 H 98-107 mmol/L Carbon Dioxide Level 23 20-31 mmol/L Anion Gap 8 5-15 Blood Urea Nitrogen 22 9-23 mg/dL Creatinine 1.67 H 0.700-1.30 mg/dL Glomerular Filtration Rate Calc 41 >90 mL/min BUN/Creatinine Ratio 13.2 10.0-20.0 Serum Glucose 135 H 74-106 mg/dL Calcium Level 9.6 8.7-10.4 mg/dL POC Glucose 140 H 70-106 mg/dl Prothrombin Time 10.6 9.3-11.8 sec Prothrombin Time INR 1.00 0.9-1.15 Activated Partial Thromboplast Time 26.1 24.5-34.5 SEC Test 06/27/24 22:10 06/27/24 17:20 06/27/24 17:13 Range/Units Urine Color Light-red Yellow Urine Clarity Ex.turbid Clear Urine pH 6.0 5.0-9.0 Urine Specific [place] 1.022 1.001-1.035 Urine Protein 2+ H Negative Urine Ketones Negative Negative Urine Blood 3+ H Negative /uL Urine Nitrite Negative Negative Urine Bilirubin Negative Negative Urine Urobilinogen Normal Negative mg/dL Urine Leukocyte Esterase 1+ Negative /uL Urine RBC 7623 0 - 3 /hpf Urine WBC 47 0 - 3 /hpf Urine Squamous Epithelial Cells None seen <5 /hpf Urine Bacteria None seen None Seen /hpf Urine Glucose Trace Normal mg/dL SARS-CoV-2 Antigen (Rapid) Negative NEGATIVE Total Bilirubin 0.5 0.2-1.0 mg/dL Aspartate Amino Transferase (AST) 20 13-40 U/L Alanine Aminotransferase (ALT) 25 7-40 U/L Alkaline Phosphatase 100 46-116 U/L Total Protein 7.0 5.7-8.2 g/dL Albumin 4.4 3.2-4.8 g/dL Assessment 1. Sarcoma of the prostate and the pathology report to be obtainedAnd patient needs to be staged. Patient presenting with hematuria 2. CKD 3. Diabetes 4. Hypertension Plan/Recommendation The patient is advised to follow-up with me as an outpatient He will need a PET/CT as an outpatient Get his pathology report PSA is pending If it is a limited disease then the patient should have surgical prostatectomy Plan discussed with: Patient, Spouse ROBERTA SNYDER MD Jun 28, 2024 13:25
[2024-06-28] MEDS ORDERED: ETOMIDATE (2MG/ML) 20ML VIAL IV ONE (13:50)
[2024-06-28] MEDS ORDERED: DexAMETHasone SOD PHOS 10MG/1ML VIAL INJ ONE (13:50)
[2024-06-28] MEDS ORDERED: ONDANSETRON HCL 4 MG/2 ML VIAL ONE (13:50)
[2024-06-28] MEDS: TAMSULOSIN HYDROCHLORIDE 0.4 MG CAP PO SCH (18:06)
[2024-06-28] MEDS ORDERED: DEXTROSE (50%) 50ML SYRG IV PRN (22:45)
[2024-06-28] MEDS: ACCU-CHEK COMFORT CURVE STRIP VI SCH (23:02)
[2024-06-28] MEDS: InsuLIN REG 1unit/0.01ml Soln (100units/ml) SC SCH (23:06)
[2024-06-29 01:02] VITALS: BP 133/70; PULSE 60; RESP 18; TEMP 98.6; O2SAT 94
[2024-06-29 05:00] VITALS: BP 106/64; PULSE 66; RESP 18; TEMP 97.8; O2SAT 94
[2024-06-29 07:21] LABS: Basophils # (auto) 0 10 ^3/uL (0-0.2); Basophils % (auto) 0.1 % (0.0-2.0); Eosinophils # (auto) 0 10 ^3/uL (0-0.8); Hematocrit 35.3 % (41.0-53.0); Lymphocytes # (auto) 0.5 10 ^3/uL (0.4-5.4); Lymphocytes % (auto) 3.9 % (10.0-50.0); Mean Corpuscular Hemoglobin 29.1 pg (28.0-32.0); Mean Corpuscular Volume 85.4 fL (80.0-100.0); Monocytes # (auto) 0.6 10 ^3/uL (0-1.3); Neutrophils # (auto) 10.5 10 ^3/uL (1.6-8.6); Nucleated Red Blood Cells % 0.1 %; Platelet Count (auto) 137 10^3/uL (140-450); Red Blood Cells 4.13 10^6/uL (4.5-5.90); Red Cell Distribution Width 14.5 % (11.8-14.3); White Blood Cell 11.5 10^3/uL (4.4-10.8)
[2024-06-29 07:41] LABS: Alanine Aminotransferase 19 U/L (7-40); Alkaline Phosphatase 100 U/L (46-116); Anion Gap 6 (5-15); Aspartate Aminotransferase 16 U/L (13-40); BUN/Creatinine Ratio 16.7 (10.0-20.0); Bilirubin, Total 0.4 mg/dL (0.2-1.0); Calcium 9.6 mg/dL (8.7-10.4); Carbon Dioxide 24 mmol/L (20-31); Chloride 108 mmol/L (98-107); Glucose 197 mg/dL (74-106); Magnesium 2.4 mg/dL (1.6-2.6); Potassium 4.6 mmol/L (3.5-5.1); Sodium 138 mmol/L (136-145); Total Protein 6.3 g/dL (5.7-8.2)
[2024-06-29 07:42] LABS: Blood Urea Nitrogen 35 mg/dL (9-23)
[2024-06-29 08:00] VITALS: RESP 18
[2024-06-29 08:04] VITALS: BP 148/81; PULSE 56; RESP 18; TEMP 97.6; O2SAT 94
[2024-06-29 08:07] LABS: PSA Free 0.42 ng/mL; Prostate Specific Antigen 1.7 ng/mL (0.0-4.0)
[2024-06-29] MEDS: HYDROcodone-ACET 5/325MG TAB PO PRN (09:49)
[2024-06-29 11:45] VITALS: BP 116/61; PULSE 72; RESP 19; TEMP 98.1; O2SAT 98
[2024-06-29] MEDS ORDERED: CEPH500C PO (14:22)
[2024-06-29] MEDS ORDERED: HYDR-4902 PO (14:23)
--- NOTE | 2024-06-29 14:27 | DVHDS2 ---
Discharge Summary Date of Admission Jun 27, 2024 at 21:31 Date of Discharge: Jun 29, 2024 Labs/Diagnostic Data: Laboratory Results Test 06/29/24 12:36 06/29/24 06:37 06/28/24 05:24 06/27/24 22:11 POC Glucose 176 mg/dl (70-106) White Blood Count 11.5 10^3/uL (4.4-10.8) Red Blood Count 4.13 10^6/uL (4.5-5.90) Hemoglobin 12.0 g/dL (13.5-17.5) Hematocrit 35.3 % (41.0-53.0) Mean Corpuscular Volume 85.4 fL (80.0-100.0) Mean Corpuscular Hemoglobin 29.1 pg (28.0-32.0) Mean Corpuscular Hemoglobin Concent 34.0 g/dL (32.0-36.0) Red Cell Distribution Width 14.5 % (11.8-14.3) Platelet Count 137 10^3/uL (140-450) Mean Platelet Volume 8.8 fL (6.9-10.8) Neutrophils (%) (Auto) 91.0 % (37.0-80.0) Lymphocytes (%) (Auto) 3.9 % (10.0-50.0) Monocytes (%) (Auto) 5.0 % (0.0-12.0) Eosinophils (%) (Auto) 0.0 % (0.0-7.0) Basophils (%) (Auto) 0.1 % (0.0-2.0) Neutrophils # (Auto) 10.5 10 ^3/uL (1.6-8.6) Lymphocytes # (Auto) 0.5 10 ^3/uL (0.4-5.4) Monocytes # (Auto) 0.6 10 ^3/uL (0-1.3) Eosinophils # (Auto) 0 10 ^3/uL (0-0.8) Basophils # (Auto) 0 10 ^3/uL (0-0.2) Nucleated Red Blood Cells 0.1 % Sodium Level 138 mmol/L (136-145) Potassium Level 4.6 mmol/L (3.5-5.1) Chloride Level 108 mmol/L (98-107) Carbon Dioxide Level 24 mmol/L (20-31) Anion Gap 6 (5-15) Blood Urea Nitrogen 35 mg/dL (9-23) Creatinine 2.10 mg/dL (0.700-1.30) Glomerular Filtration Rate Calc 31 mL/min (>90) BUN/Creatinine Ratio 16.7 (10.0-20.0) Serum Glucose 197 mg/dL (74-106) Calcium Level 9.6 mg/dL (8.7-10.4) Magnesium Level 2.4 mg/dL (1.6-2.6) Total Bilirubin 0.4 mg/dL (0.2-1.0) Aspartate Amino Transferase (AST) 16 U/L (13-40) Alanine Aminotransferase (ALT) 19 U/L (7-40) Alkaline Phosphatase 100 U/L (46-116) Total Protein 6.3 g/dL (5.7-8.2) Albumin 4.0 g/dL (3.2-4.8) Free Prostate Specific Antigen 0.42 ng/mL (N/A) Percent Free Prostate Specific Ag 24.7 % (.) Prostate Specific Antigen Total 1.7 ng/mL (0.0-4.0) Prothrombin Time 10.6 sec (9.3-11.8) Prothrombin Time INR 1.00 (0.9-1.15) Activated Partial Thromboplast Time 26.1 SEC (24.5-34.5) Test 06/27/24 22:10 06/27/24 17:20 Urine Color Light-red (Yellow) Urine Clarity Ex.turbid (Clear) Urine pH 6.0 (5.0-9.0) Urine Specific [place] 1.022 (1.001-1.035) Urine Protein 2+ (Negative) Urine Ketones Negative (Negative) Urine Blood 3+ /uL (Negative) Urine Nitrite Negative (Negative) Urine Bilirubin Negative (Negative) Urine Urobilinogen Normal mg/dL (Negative) Urine Leukocyte Esterase 1+ /uL (Negative) Urine RBC 7623 /hpf (0 - 3) Urine WBC 47 /hpf (0 - 3) Urine Squamous Epithelial Cells None seen /hpf (<5) Urine Bacteria None seen /hpf (None Seen) Urine Glucose Trace mg/dL (Normal) SARS-CoV-2 Antigen (Rapid) Negative (NEGATIVE) Other Laboratory Tests 06/29/24 06:37 Brief Hx & Hospital Course: Final diagnoses: Hematuria due to prostate cancer, sarcoma Urinary retention due to bleeding and retained blood clots Prostate cancer s/p recent TURP CKD IIIb HTN Prostate CA, sarcoma type He was sent to the hospital by Dr. Valadez due to urinary retention and hematuria and blood clots. The patient just had a prostate surgery 2 weeks ago which revealed sarcoma of the prostate Nursing staff here tried a Box catheter however it induced a false urethral passage and therefore it was aborted and Dr. Neal recommended surgery who and he had cystoscopy with clot evacuation and fulguration and had a Box insertion He had continuous bladder irrigation overnight and today the urine is clear He is feeling better He will be discharged home with a Box catheter and follow up with Dr. Valdaez next week He was also seen by Oncology here by Dr. Bernal who will see him also as an outpatient for follow up and treatment of his sarcoma of the prostate Condition at Discharge: Good Final Diagnosis/Problems List Prostate sarcoma Hematuria status post cystoscopy and blood clot evacuation Discharge Disposition: Home SNF Discharge Will this Physician continue t: No Discharge Instruct/Medications Diet: Cardiac 2g Na,low cholest Activity: No Restrictions, As Tolerated Follow Up/Referral: Dr. Bhanu Valadez in 1 week Medications: Same home medications Cephalexin for 5 days [place] p.r.n. Discharge Statement: "Patient was advised to return to the ER or call 911 if any headaches, dizziness, shortness of breath, chest pain, abdominal pain, bleeding, fevers, or worsening of medical condition. Patient was counseled about treatment plan, medications, possible side effects, patientverbalized understanding. All questions were answered to the best of my ability. This discharge took greater then 30 minutes in planning, reviewing documentation, counseling the patient, and discussing with other team members." ASSESSMENT ASSESSMENT Assessment Prostate sarcoma Hematuria status post cystoscopy and blood clot evacuation Date of Service: Jun 29, 2024 Billing Provider: LAURA HERNANDEZ MD Common Visit Codes: NOT BILLABLE LAURA HERNANDEZ MD Jun 29, 2024 14:27
[2024-06-29 16:44] VITALS: BP 146/80; PULSE 68; RESP 17; TEMP 98.1; O2SAT 97
== END 2024-06-29 17:44 | disposition home or self-care (01) | DRG 713 ==
LOC: ER 16:22 → EDBD 16:22 → OVERFLOW 21:31 → CENTRAL 21:38
PROVIDERS: ADMIT Nurse Practitioner; ATTEND Internal Medicine Geriatric Medicine
PROC: 0V508ZZ Destruction of Prostate, Via Natural or Artificial Opening Endoscopic (ICD-10-PCS; 2024-06-28)
PROC: 0TCC8ZZ Extirpation of Matter from Bladder Neck, Via Natural or Artificial Opening Endoscopic (ICD-10-PCS; principal; 2024-06-28 11:58)
DX: C61 Malignant neoplasm of prostate (principal); N13.30 Unspecified hydronephrosis; N18.32 Chronic kidney disease, stage 3b; I12.9 Hypertensive chronic kidney disease with stage 1 through stage 4 chronic kidney disease, or unspecified chronic kidney disease; Z20.822 Contact with and (suspected) exposure to COVID-19; E11.22 Type 2 diabetes mellitus with diabetic chronic kidney disease; N40.1 Benign prostatic hyperplasia with lower urinary tract symptoms; R33.8 Other retention of urine; Z80.3 Family history of malignant neoplasm of breast
CPT/HCPCS: 36415; 71045; 74176; 80048; 80053; 81001; 82962; 83735; 84154; 85025; 85610; 85730; 86850; 86900; 86901; 87426; G0378; J1100; J1815; J2250; J2405